=== PATIENT | female | born 1955 ===

== ENCOUNTER 2019-06-23 22:19 | Emergency (ER) | payer OTHER ==
[~2019-06-23] VITALS: Ht 167.6 cm; Wt 90.0 kg
[2019-06-23 22:23] VITALS: BP 103/70
--- NOTE | 2019-06-23 22:28 | NUR ---
63 Y/O FEMALE BIB [facility] FOR ETOH USE TONIGHT. PT REPORTS SHE TYPICALLY DOES NOT DRINK ALCOHOL HOWEVER TODAY SHE WAS UPSET ABOUT SOMETHING AND DECIDED TO DRINK VODKA. SHE REPORTS DRINKING ABOUT 16OZ AND "I DIDN'T REALIZE HOW MUCH I HAD DRANK". SHE ALSO REPORTS EATING A MARIJUANA EDIBLE. SHE IS C/O N/V AND "I CAN'T WALK WELL". SHE DENIES ANY SI. SHE IS CAOX4 WITH A GCS OF 15, FRIEND IS AT BEDSIDE. EMS STARTED AN IV AND ADMINISTERED NS BOLUS AND GAVE 4MG OF ZOFRAN IV. ALL VITALS STABLE. PT REPORTS A HX OF HYPOTENSION, DIABETES, AND CHRONIC PAIN SYNDROME. HER FSBS WAS 84. DR. LARSON AT BEDSIDE EVALUATING PT. WILL CONTINUE TO MONITOR.
[2019-06-23] MEDS ORDERED: PROMETHAZINE 25 MG/ML, 1ML IM ONE (22:30)
[2019-06-23] MEDS ORDERED: PLEASE ENTER ALLERGIES MC SCH (22:30)
[2019-06-23] MEDS ORDERED: SODIUM CHLORIDE 0.9% 1,000ML IVBOLUS ONE (22:30)
[2019-06-23] MEDS ORDERED: MORPHINE SULFATE 4 MG/ML, 1ML IVPush PRN (22:30)
[2019-06-23] MEDS ORDERED: SODIUM CHLORIDE FLUSH 10ML SYR IVF ONE (22:30)
[2019-06-23 22:58] LABS: ALBUMIN 4.3 g/dL (3.4-5.0); ANION GAP 15 mmol/L (5-15); CHLORIDE 106 mmol/L (98-107)
[2019-06-23 23:03] LABS: ALANINE AMINOTRANSFERASE 60 U/L (12-78); ALKALINE PHOSPHATASE 54 U/L (45-117); BILIRUBIN,TOTAL 0.6 mg/dL (0.2-1.0); TOTAL PROTEIN 7.7 g/dL (6.4-8.2); TROPONIN I < 0.015 ng/mL (0.000-0.045)
--- NOTE | 2019-06-23 23:04 | NUR ---
FLUID BOLUS STARTED. MORPHINE AND PHENERGAN HELD AT THIS TIME DUE TO PT NOT C/O ANY PAIN. PT ALSO REPORTS "FEELING MUCH BETTER" AFTER EMS ADMINISTRATION OF ZOFRAN IV. PT ALSO DENYING NAUSEA AT THIS TIME. "I JUST WANT TO SLEEP". CALL LIGHT WITHIN REACH, FRIEND AT BEDSIDE.
[2019-06-23 23:09] LABS: BASOPHILS # (AUTO) 0.03 x10^3/uL (0-0.1); BASOPHILS % (AUTO) 0 % (0-1); EOSINOPHILS # (AUTO) 0.05 x10^3/uL (0-0.4); EOSINOPHILS % (AUTO) 1 % (1-7); LYMPHOCYTES # (AUTO) 2.08 x10^3/uL (1-3.4); LYMPHOCYTES % (AUTO) 19 % (22-44); MD SCAN; MEAN CORPUSCULAR HEMOGLOBIN 30.8 pg (27.0-34.8); MEAN CORPUSCULAR HGB CONC 33.3 g/dL (32.4-35.8); MEAN CORPUSCULAR VOLUME 92.4 fL (80-100); MEAN PLATELET VOLUME 10.6 fL (7.4-10.4); MONOCYTES % (AUTO) 3 % (2-9); NEUTROPHILS # (AUTO) 8.67 x10^3/uL (1.8-6.8); NEUTROPHILS % (AUTO) 78 % (42-75); PLATELET COUNT 228 x10^3/uL (130-400); RED BLOOD COUNT 4.93 x10^6/uL (3.82-5.3); RED CELL DISTRIBUTION WIDTH 13.1 % (9.6-15.2)
--- NOTE | 2019-06-24 00:03 | NUR ---
PT SLEEPING. VITALS STABLE. RESPIRATIONS EVEN AND UNLABORED. WILL CONTINUE TO MONITOR. AWAITING PT TO SOBER UP FOR SAFE DISCHARGE.
--- NOTE | 2019-06-24 00:44 | NUR ---
PT AWAKE, ALERT. AMBAULTORY WITH A STEADY GAIT. DR. LARSON AT BEDSIDE SPEAKING WITH PT. ALL VITALS STABLE. IV REMOVED. CAB VOUCHER PROVIDED TO PT
--- NOTE | 2019-06-24 01:01 | NUR ---
Patient/Caregiver given discharge instructions and they have confirmed that they understand the instructions. Patient ambulatory with steady gait.
== END 2019-06-24 01:05 ==
LOC: ED 06-24 00:59
DX: F10.120 Alcohol abuse with intoxication, uncomplicated (principal); R11.10 Vomiting, unspecified; R10.9 Unspecified abdominal pain; Y90.9 Presence of alcohol in blood, level not specified
CPT/HCPCS: 36415; 80053; 80307; 83690; 84484; 85025; 93005; 96360; 99284; J7030